=== PATIENT | male | born 1975 | race Two or more races ===

== ENCOUNTER 2023-09-20 11:06 | Emergency (ER) | payer OTHER ==
[~2023-09-20] VITALS: Ht 165.1 cm; Wt 76.2 kg
== END 2023-09-20 15:58 | disposition home or self-care (01) ==
LOC: ER 11:07
DX: S76.012A Strain of muscle, fascia and tendon of left hip, initial encounter (principal); X58.XXXA Exposure to other specified factors, initial encounter; Y93.9 Activity, unspecified; Y92.9 Unspecified place or not applicable; Y99.9 Unspecified external cause status